=== PATIENT | male | born 1985 ===

== ENCOUNTER 2020-10-03 13:25 | Emergency (ER) | payer SELFPAY ==
[~2020-10-03] VITALS: Ht 177.8 cm; Wt 86.5 kg
--- NOTE | 2020-10-03 13:54 | NUR ---
pt is a [place]ican speaking 35/m complaining of intermittent chest pressure on the left chest area x 3 days. He states he is dizzy sometimes with it but no nausea or vomiting and no radiation. He is not doing any activities when he has these episodes and nothing makes it better or worse. monitor worker applied, continuous spo2 and cycling vitals. call light in place. Straw Boss #[id number]
[2020-10-03 14:23] LABS: BASOPHILS % (AUTO) 1 % (0-1); EOSINOPHILS % (AUTO) 1 % (1-7); LYMPHOCYTES % (AUTO) 28 % (22-44); MEAN CORPUSCULAR HEMOGLOBIN 30.6 pg (27.5-34.5); MEAN PLATELET VOLUME 7.9 fL (7.4-10.4); MONOCYTES % (AUTO) 7 % (2-9); NEUTROPHILS % (AUTO) 63 % (42-75); PLATELET COUNT 360 x10^3/uL (130-400); RED BLOOD COUNT 4.54 x10^6/uL (4.38-5.82); RED CELL DISTRIBUTION WIDTH 14.6 % (9.4-14.8)
[2020-10-03 14:29] LABS: MD NO
[2020-10-03 14:37] LABS: ALANINE AMINOTRANSFERASE 19 U/L (12-78); ALBUMIN 3.8 g/dL (3.4-5.0); ANION GAP 5 mmol/L (5-15); CALCIUM 8.7 mg/dL (8.5-10.1); CHLORIDE 108 mmol/L (98-107)
[2020-10-03 14:41] LABS: ALKALINE PHOSPHATASE 47 U/L (45-117); TOTAL PROTEIN 7.1 g/dL (6.4-8.2); TROPONIN I < 0.015 ng/mL (0.000-0.045)
--- NOTE | 2020-10-03 14:43 | NUR ---
patient resting comfortably, no additional needs verbalized at this time. call light within reach.
[2020-10-03 14:44] VITALS: BP 137/95
--- NOTE | 2020-10-03 15:01 | NUR ---
PATIENT WANTING TO LEAVE AND UNWILLING TO STAY FOR D/C PAPERWORK. PROVIDER NOTIFIED. NO IV TO D/C -= PATIENT LEFT AMBULATORY WITH STEADY GAIT. NO COMPLAINTS OF PAIN.
== END 2020-10-03 15:05 | disposition left against medical advice (07) ==
LOC: ED 14:59
DX: R07.89 Other chest pain (principal); R51.9 Headache, unspecified; R94.31 Abnormal electrocardiogram [ECG] [EKG]
CPT/HCPCS: 36415; 71045; 80053; 83690; 84484; 85025; 93005; 99285